=== PATIENT | female | born 1955 | race Caucasian/White ===

== ENCOUNTER 2016-07-11 07:58 | Day surgery (SDC) | payer MEDICAID ==
[~2016-07-11] VITALS: Ht 160 cm; Wt 63.6 kg
[~2016-07-11 07:58] MED LIST: ASPI1TAB69 PO; BORT3.5P; CIPR0.3S2 EACH EYE; DEXA4TAB PO; POTA75TA2; REVLIMID PO; SCOP1PAT2 T-DERMAL; ZOVI400T PO
[2016-07-11 08:13] VITALS: BP 105/61; PULSE 64; RESP 20; TEMP 98.1; O2SAT 97
[2016-07-11] MEDS ORDERED: SODIUM CHLOR 0.9% 1000 ML IV SCH (08:30)
[2016-07-11] MEDS ORDERED: IMPLANTED VASCULAR ACCESS DEVICE/PORT - SODIUM CHLORIDE FLUSH PRN IVF (08:30)
[2016-07-11] MEDS ORDERED: SODIUM CHLORIDE 5 ML FLUSH PRN IVF (08:30)
[2016-07-11] MEDS ORDERED: IMPLANTED VASCULAR ACCESS DEVICE/PORT - SODIUM CHLORIDE FLUSH IVF SCH (08:30)
[2016-07-11] MEDS ORDERED: POTA-163 PO (08:40)
[2016-07-11] MEDS ORDERED: ASPI325T PO (08:40)
[2016-07-11] MEDS ORDERED: SODIUM CHLORIDE 5 ML FLUSH BID IVF SCH (09:00)
[2016-07-11 09:17] LABS: AUTOMATED NEUTROPHIL # 2.8 TH/MM3 (1.8-7.7); BASOPHIL % 0.4 % (0.0-2.0); EOSINOPHIL # 0.2 TH/MM3 (0-0.4); EOSINOPHIL % 2.8 % (0.0-4.0); HEMO FLAGS DIFF FINAL; LYMPH % 23.5 % (9.0-44.0); LYMPHOCYTE # 1.3 TH/MM3 (1.0-4.8); MEAN CELL VOLUME 88.6 FL (80.0-100.0); MEAN CORPUSCULAR HEMOGLOBIN 30.4 PG (27.0-34.0); MEAN CORPUSCULAR HGB CONC 34.4 % (32.0-36.0); MONO % 22.5 % (0.0-8.0); NEUT % 50.8 % (16.0-70.0); PLATELET COUNT 310 TH/MM3 (150-450); RED BLOOD COUNT 3.72 MIL/MM3 (4.00-5.30); RED CELL DISTRIBUTION WIDTH 17.2 % (11.6-17.2); WHITE BLOOD COUNT 5.6 TH/MM3 (4.0-11.0)
[2016-07-11] MEDS ORDERED: LIDOCAINE 1%/EPINEPHrine 1:100,000 SOLN 20 ML VIAL ONE (10:25)
[2016-07-11] MEDS ORDERED: MIDAZOLAM HCL 5 MG/5 ML VIAL ONE (10:48)
[2016-07-11] MEDS ORDERED: fentaNYL CITRATE 250 MCG/5 ML AMP ONE (10:48)
[2016-07-11 11:30] VITALS: BP 113/68; PULSE 72; RESP 18; TEMP 95.6; O2SAT 95
[2016-07-11 11:45] VITALS: BP 113/72; PULSE 70; RESP 18; O2SAT 95
[2016-07-11 12:15] VITALS: BP 113/58; PULSE 92; RESP 18; O2SAT 92
[2016-07-11 12:40] LABS: BONE MARROW PROCESSING COMPLETE; IRON STAIN DONE; JENNER GIEMSA STAIN DONE
[2016-07-11 12:45] VITALS: BP 121/64; PULSE 92; RESP 18; O2SAT 99
--- NOTE | 2016-07-11 12:50 | RADRPT ---
EXAM DATE/TIME: 07/11/2016 10:51 [facility] COMPARISON: CT NEEDLE BIOPSY BONE MARROW, January 24, 2016, 15:52. INDICATIONS : Multiple myeloma SEDATION TIME: 15 minutes BIOPSY SITE: Right ilium MEDICATION(S): 1.) 2 mg midazolam (Versed) IV 2.) 100 mcg fentanyl (Sublimaze) IV DEVICE(S): 1.) 12 gauge Biopsy gun MEDICAL HISTORY : Hepatitis C. Multiple myeloma SURGICAL HISTORY : None. ENCOUNTER: Initial ACUITY: 1 day PAIN SCORE: 5/10 LOCATION: all over A total of one core specimen(s) were obtained and sent to the laboratory for pathologic evaluation. PROCEDURE: 1. CT guided bone marrow biopsy. Prior to the procedure informed consent was obtained. Any appropriate prior imaging studies were rev iewed. The site was prepped in a sterile fashion. Full sterile technique was used, including cap, mask, mariusz rile gloves and gown and a large sterile sheet. Hand hygiene and 2% chlorhexidine and/or betadine/al cohol prep was utilized per protocol for cutaneous antisepsis. The skin and subcutaneous tissues wer e infiltrated with local anesthetic solution. With CT guidance the previously identified target was localized. Biopsy was performed using the presc ribed needle as above. Following biopsy marrow aspiration was performed with repeat puncture. Adequa te hemostasis was obtained with compression at the puncture site. Follow-up CT scan reveals no hemorrhage. Conscious sedation was performed with the prescribed dosages and duration as above. The patient lauren ated the procedure well and there were no complications. EKG and oximetry remained stable throughout the procedure. The patient was sent to Radiology Outpatient Unit in stable condition. CONCLUSION: 1. Uncomplicated CT guided bone marrow aspirate. 2. Uncomplicated CT guided bone marrow biopsy. Israel Wilder MD FACR on July 11, 2016 at 12:48 Board Certified Radiologist. This report was verified electronically.
== END 2016-07-11 13:20 | disposition home or self-care (01) ==
LOC: HRAD 07:58 → HRIP 08:00 → EDSTATUS 08:00 → HRAD 13:20
PROVIDERS: ATTEND Internal Medicine
DX: C90.00 Multiple myeloma not having achieved remission (principal); B19.20 Unspecified viral hepatitis C without hepatic coma
CPT/HCPCS: 38221; 77012; 85025; 85097; 88305; 88311; 88313; 88341; 88342; 99151; C1830; G0364; J2250; J3010; J7030

== ENCOUNTER 2017-04-23 13:16 | Emergency (ER) | payer OTHER, MEDICAID ==
[~2017-04-23] VITALS: Ht 160 cm; Wt 79.5 kg
[2017-04-23 13:16] VITALS: BP 139/75; PULSE 77; RESP 16; TEMP 98.9; O2SAT 97
[~2017-04-23 13:16] MED LIST changes: +ASPI-183 PO; -ASPI1TAB69 PO; -BORT3.5P; +POTA-163 PO; -POTA75TA2
[2017-04-23] MEDS ORDERED: ASPI81TA81 PO (13:46)
[2017-04-23] MEDS ORDERED: TETANUS/DIPHTHERIA TOXOID ADULT 0.5 ML VIAL IM ONE (14:15)
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
[2017-04-23] MEDS ORDERED: ROBA500T PO (14:59)
[2017-04-23] MEDS ORDERED: NAPR500T2 PO (14:59)
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
[2017-04-23 15:40] VITALS: BP 162/78
== END 2017-04-23 15:51 | disposition home or self-care (01) ==
LOC: NEPC 13:16
DX: S90.01XA Contusion of right ankle, initial encounter (principal); S70.211A Abrasion, right hip, initial encounter; S90.511A Abrasion, right ankle, initial encounter; J44.9 Chronic obstructive pulmonary disease, unspecified; C90.01 Multiple myeloma in remission; W22.8XXA Striking against or struck by other objects, initial encounter; Z23 Encounter for immunization
CPT/HCPCS: 73502; 73610; 90471; 90714